=== PATIENT | female | born 1965 | race Caucasian/White ===

== ENCOUNTER 2023-06-26 07:23 | Inpatient (IN) | payer MEDICARE, MEDICAID ==
[2023-06-21 15:44] LABS: BASOPHILS % (AUTO) 0.3 % (0-1); EOSINOPHILS # (AUTO) 0.2 X10'3 (0-0.9); EOSINOPHILS % (AUTO) 1.8 % (0-6); LYMPHOCYTES # (AUTO) 3.2 X10'3 (1.1-4.8); LYMPHOCYTES % (AUTO) 36.3 % (21-51); MEAN CORPUSCULAR HEMOGLOBIN 30.3 PG (27.0-31.0); MEAN CORPUSCULAR HGB CONC 33.4 g/dL (33.0-36.5); MEAN CORPUSCULAR VOLUME 90.6 FL (78-98); MEAN PLATELET VOLUME 8.7 FL (7.4-10.4); MONOCYTES # (AUTO) 0.4 X10'3 (0-0.9); MONOCYTES % (AUTO) 4.2 % (2-12); NEUTROPHILS # (AUTO) 5.1 X10'3 (1.8-7.7); NEUTROPHILS % (AUTO) 57.4 % (42-75); PRE OP HEMATOCRIT 44.5 % (35.0-45.0); PRE OP HEMOGLOBIN 14.9 g/dL (12.0-16.0); PRE OP PLATELET COUNT 275 X10'3 (140-440); PRE OP WHITE BLOOD COUNT 8.9 10'3 (4.8-10.8); RED BLOOD COUNT 4.91 X10'6 (4.20-5.60); RED CELL DISTRIBUTION WIDTH 14.1 % (11.5-14.5)
[2023-06-21 15:48] LABS: BILIRUBIN,URINE NEGATIVE (Neg); CLARITY,URINE CLEAR (Clear); COLOR,URINE YELLOW (Yellow); GLUCOSE, URINE 100 mg/dl (Neg); KETONES,URINE NEGATIVE (Neg); LEUKOCYTE ESTERASE ,URINE NEGATIVE (Neg); NITRITES, URINE NEGATIVE (Neg); OCCULT BLOOD,URINE NEGATIVE (Neg); PROTEIN,URINE NEGATIVE (Neg); UROBILINOGEN,URINE 0.2 E.U/dL (0.2-1.0)
[2023-06-21 15:54] LABS: ALBUMIN 3.8 G/DL (3.4-5.0); ALBUMIN/GLOBULIN RATIO 0.9 (1.1-1.5); ALKALINE PHOSPHATASE 119 IU/L (46-116); BLOOD UREA NITROGEN 12 MG/DL (7-18); BUN/CREATININE RATIO 12.8 (10.0-20.0); CALCIUM 9.8 MG/DL (8.5-10.1); CHLORIDE 104 MMOL/L (99-107); CREATININE 0.94 MG/DL (0.40-0.90); PRE OP ALT 15 U/L (30-65); PRE OP ANION GAP 11 (8-16); PRE OP AST 14 U/L (10-37); PRE OP BILIRUB, TOTAL 0.2 MG/DL (0.0-1.0); PRE OP GLUCOSE 183 MG/DL (70-104); PRE OP POTASSIUM 3.7 MMOL/L (3.4-5.1); PRE OP SODIUM 137 MMOL/L (135-145); TOTAL CARBON DIOXIDE 22.1 MMOL/L (24-32); TOTAL PROTEIN 7.9 G/DL (6.4-8.2); eGFR 61 ML/MIN
[2023-06-21 15:58] LABS: UA COLLECTION TYPE CLN CATCH MIDSTREAM
[2023-06-21 16:20] LABS: HEMOGLOBIN A1C 7.4 % (4.5-6.2)
[~2023-06-26] VITALS: Ht 167.6 cm; Wt 68.3 kg
[2023-06-26] VITALS (26 sets, daily range): BP systolic 91–171; BP diastolic 43–111; PULSE 68–84; RESP 11–22; TEMP 97.6–98.4; O2SAT 94–100
[~2023-06-26 07:23] MED LIST: BUSP30TA3 PO; CLON0.1T2 PO; DOCUMENT DATE & TIME OF BETA-BLOCKER PO ONE; DULA1.5P SQ; GABA300C PO; IBUP-1985 PO; LAMO100T PO; MECL-302 PO; METO25TA6 PO; MIRT-88 PO; OMEP20CA16 PO; ZOLP5TAB8 PO; cefazolin 2gm/D5W 100mL 100 ML IV ONE; famotidine 20mg tablet PO ONE; ringers solution, lacted 1,000 ML IV SCH; tranexamic acid 650mg tablet PO ONE; vancomycin/NS 1 GM in NS 250 ML IV ONE
--- NOTE | 2023-06-26 07:30 | NUR ---
PT WAS ABLE TO COMPLETE ALL SHOWERS AND OINTMENT ORDERED, REVIEWED JOINT EDUCATION-ALL QUESTIONS ANSWERED, CSM PRESENT TO BLE
[2023-06-26] MEDS ORDERED: MIDAZolam 1mg/ml 10ml vial ONE (10:27)
[2023-06-26] MEDS ORDERED: fentaNYL/PF 50MCG/1 ML 2ML syringe ONE (10:27)
[2023-06-26] MEDS ORDERED: oxyCODONE IR 5mg (immed. release) tablet PO PRN ×2 (10:45)
[2023-06-26] MEDS ORDERED: magnesium hydroxide 30ml (MOM) UD suspension PO PRN (10:45)
[2023-06-26] MEDS ORDERED: zolpidem 5mg tablet PO PRN (10:45)
[2023-06-26] MEDS ORDERED: HYDROmorphone inj. 0.5 MG/0.5 ML DISP.SYRIN IV PRN (10:45)
[2023-06-26] MEDS ORDERED: bisacodyl 10mg suppository rectal RC PRN (10:45)
[2023-06-26] MEDS ORDERED: ondansetron/PF 4mg/2ml inj IV PRN ×2 (10:45→11:10)
[2023-06-26] MEDS ORDERED: acetaminophen 325mg tablet PO PRN (10:45)
[2023-06-26] MEDS ORDERED: HYDROcodone/acetaminophen 10/325mg tab PO PRN (10:45)
[2023-06-26] MEDS ORDERED: meclizine 12.5mg tablet PO PRN (10:45)
[2023-06-26] MEDS ORDERED: naloxone 0.4 mg/ml inj IV PRN (10:45)
[2023-06-26] MEDS ORDERED: ROPIVAcaine 0.5% (5mg/ml) 30ml vial ONE ×2 (11:02→11:23)
[2023-06-26] MEDS ORDERED: ringers solution, lacted 1,000 ML IV SCH (11:10)
[2023-06-26] MEDS ORDERED: fentaNYL/PF 50MCG/1 ML 2ML syringe IV PRN ×2 (11:10)
[2023-06-26] MEDS ORDERED: labetalol 20mg/4ml (5mg/ml) syringe IV PRN (11:10)
[2023-06-26] MEDS ORDERED: morphine 4 MG/ML inj SYRINge IV PRN (11:10)
[2023-06-26] MEDS ORDERED: morphine 2 MG/ML inj. syringe IV PRN (11:10)
[2023-06-26] MEDS ORDERED: hydrALAZINE 20mg/ml inj. IV PRN (11:10)
--- NOTE | 2023-06-26 12:15 | NUR ---
Received from OR via HOSPITAL BED, accompanied by Anesthesiologist DR GUNTER and report given by Anesthesiologist. PT IS GROGGY BUT RESPONDS TO VERBAL STIMULI. PT PLACED ON BEDSIDE MONITOR, VSS. PT IN SR WITH RATE IN 70'S. PT RECEIVING 8L O2 TO MASK AND TOLERATING WELL WITH O2 SAT > 95%. WILL TITRATE DOWN PT TOLERATES. PT HAS 22G PIV TO RT WRIST WITH LR INFUSING ORDERED. PT HAS ISLAND DRSG TO RT KNEE THAT IS CDI, KNEE WRAP AND ICE PACK IN PLACE. PT IS UNABLE TO MOVE BLE, FEELING AT L1. PT HAS BILAT, STRONG PALPABLE DORSALIS PEDIS PULSES PRESENT. PT DENIES PAIN AT THIS TIME. WILL CONTINUE TO ASSESS
[2023-06-26] MEDS ORDERED: non-formulary drug (Ibuprofen 1 TAB) PO SCH (13:00)
[2023-06-26] MEDS: gabapentin 300mg capsule PO SCH ×2 (13:27→20:55)
[2023-06-26] MEDS: acetaminophen 325mg tablet PO SCH ×2 (14:00→20:00)
--- NOTE | 2023-06-26 14:30 | NUR ---
PATIENT HAS MET ALL CRITERIA FOR TRANSFER TO THE ORTHO FLOOR. VSS. DRESSINGS INTACT. BED LOW, CALL LIGHT PRESENT AND 2 RAILS UP. NURSE PRESENT TO ACCEPT CARE OF PATIENT AND REPORT HAS BEEN CALLED TO KARRI PETTIT. ALL QUESTIONS ANSWERED TO ACCEPTING RN.
--- NOTE | 2023-06-26 17:30 | NUR ---
I have reviewed and agree with interventions, assessments, and documentation by Yaneli Bacon LVN.
[2023-06-26] MEDS: ceFAZolin/D5W- 1GM premix 50 ML IV SCH (17:54)
[2023-06-26] MEDS: HYDROcodone/acetaminophen 10/325mg tab PO PRN ×2 (18:28→23:38)
--- NOTE | 2023-06-26 18:43 | NUR ---
Patient in room ORTHO 4024. I have received report from HODAN VIDALES and had the opportunity to ask questions and assume patient care.
[2023-06-26] MEDS: potassium cl 20mEq in 1/2 NS 1,000 ML IV SCH ×2 (18:45→21:14)
[2023-06-26] MEDS ORDERED: vancomycin/NS 1 GM ADD-VANTAGE 250 ML IV SCH (20:00)
[2023-06-26] MEDS: HYDROmorphone 1 mg/ml syringe IV PRN (20:34)
[2023-06-26] MEDS: metoprolol tartrate 25mg tablet PO SCH (20:56)
[2023-06-26] MEDS: busPIRone 15mg tablet PO SCH (20:57)
[2023-06-26] MEDS ORDERED: sennosides 8.6mg tablet PO SCH (21:00)
[2023-06-26] MEDS ORDERED: cloNIDine 0.1 mg tablet PO SCH (21:00)
[2023-06-26] MEDS ORDERED: pantoprazole 40mg Tablet.DR PO SCH (21:00)
[2023-06-27] MEDS: HYDROmorphone 1 mg/ml syringe IV PRN ×2 (01:33→05:57)
[2023-06-27] MEDS: acetaminophen 325mg tablet PO SCH ×3 (02:00→13:32)
[2023-06-27] MEDS: ceFAZolin/D5W- 1GM premix 50 ML IV SCH (02:07)
[2023-06-27] MEDS: potassium cl 20mEq in 1/2 NS 1,000 ML IV SCH ×2 (02:45→10:10)
[2023-06-27 07:29] LABS: BASOPHILS # (AUTO) 0.1 X10'3 (0-0.2); BASOPHILS % (AUTO) 0.8 % (0-1); EOSINOPHILS # (AUTO) 0.2 X10'3 (0-0.9); EOSINOPHILS % (AUTO) 2.4 % (0-6); HEMATOCRIT 35.3 % (35.0-45.0); HEMOGLOBIN 11.9 g/dl (12.0-16.0); LYMPHOCYTES # (AUTO) 2.4 X10'3 (1.1-4.8); LYMPHOCYTES % (AUTO) 34.9 % (21-51); MEAN CORPUSCULAR HEMOGLOBIN 30.3 PG (27.0-31.0); MEAN CORPUSCULAR HGB CONC 33.7 g/dL (33.0-36.5); MEAN CORPUSCULAR VOLUME 89.9 FL (78-98); MEAN PLATELET VOLUME 8.3 FL (7.4-10.4); MONOCYTES # (AUTO) 0.5 X10'3 (0-0.9); MONOCYTES % (AUTO) 7.5 % (2-12); NEUTROPHILS # (AUTO) 3.8 X10'3 (1.8-7.7); NEUTROPHILS % (AUTO) 54.4 % (42-75); PLATELET COUNT 237 X10'3 (140-440); RED BLOOD COUNT 3.93 X10'6 (4.20-5.60); RED CELL DISTRIBUTION WIDTH 13.9 % (11.5-14.5)
[2023-06-27] MEDS: busPIRone 15mg tablet PO SCH (07:35)
[2023-06-27] MEDS: gabapentin 300mg capsule PO SCH ×2 (07:36→12:55)
[2023-06-27] MEDS: metoprolol tartrate 25mg tablet PO SCH (07:39)
[2023-06-27 07:54] LABS: ANION GAP 5 (8-16); CHLORIDE 105 MMOL/L (99-107); POTASSIUM 4.1 MMOL/L (3.5-5.1); SODIUM 135 MMOL/L (135-145); TOTAL CARBON DIOXIDE 24.8 MMOL/L (24-32)
[2023-06-27 08:00] VITALS: BP 139/67; PULSE 83; RESP 16; TEMP 98.6; O2SAT 98
[2023-06-27] MEDS ORDERED: lamoTRIgine 100mg tablet PO SCH (08:00)
[2023-06-27] MEDS ORDERED: Dulaglutide (Trulicity) 1.5 MG/0.5ML SQ SCH (08:00)
[2023-06-27] MEDS ORDERED: aspirin 325mg tablet PO SCH (08:30)
[2023-06-27] MEDS ORDERED: cyclobenzaprine 10mg tablet PO PRN (08:40)
[2023-06-27] MEDS ORDERED: oxyCODONE IR 5mg (immed. release) tablet PO PRN (08:40)
[2023-06-27] MEDS: oxyCODONE IR 5mg (immed. release) tablet PO PRN ×2 (09:04→13:33)
[2023-06-27 10:00] VITALS: BP 139/63; PULSE 83; RESP 20; TEMP 99.3; O2SAT 98
[2023-06-27 10:46] VITALS: RESP 16; O2SAT 98
[2023-06-27] MEDS ORDERED: ketorolac tromethamine 15mg/ml inj. IV ONE (11:00)
[2023-06-27 13:33] VITALS: RESP 16
[2023-06-27] MEDS ORDERED: ONDA8TAB13 PO (13:56)
--- NOTE | 2023-06-27 14:45 | NUR ---
Joint and diabetes consults: Pt s/p knee surgery per EMR. Pt presents with A1c of 7.4% this admit per EMR. RD attempted to see pt at bedside however pt was busy with another discipline during time of visit. Due to short staffing placed high protein nutrition and diabetes nutrition education handouts in pt's chart with RD contact information. Will remain available for any nutrition questions or concerns. Addendum: 06/27/23 at [address] Amended: Links added.
[2023-06-28] MEDS ORDERED: acetaminophen 325mg tablet PO PRN (10:45)
== END 2023-06-27 15:15 | disposition home or self-care (01) | DRG 470 ==
LOC: PAS 07:23 → ORTHO 4S 10:46
PROVIDERS: ADMIT Orthopaedic Surgery; ATTEND Orthopaedic Surgery
PROC: 0SRC0J9 Replacement of Right Knee Joint with Synthetic Substitute, Cemented, Open Approach (ICD-10-PCS; 2023-06-26)
PROC: 3E0T3BZ Introduction of Anesthetic Agent into Peripheral Nerves and Plexi, Percutaneous Approach (ICD-10-PCS; 2023-06-26)
PROC: 3E0T33Z Introduction of Anti-inflammatory into Peripheral Nerves and Plexi, Percutaneous Approach (ICD-10-PCS; 2023-06-26)
PROC: 8E0Y0CZ Robotic Assisted Procedure of Lower Extremity, Open Approach (ICD-10-PCS; principal; 2023-06-26 10:25)
DX: M17.11 Unilateral primary osteoarthritis, right knee (principal)
CPT/HCPCS: 36415; 80051; 80053; 81003; 82948; 83036; 85025; 87081; 97110; 97161; 97530; A4215; A7000; C1713; C1758; C1776; G0378; J0690; J1170; J1885; J2250; J2795; J3010; J3370; J3480; J3490; J7120

== ENCOUNTER 2023-10-18 15:23 | Emergency (ER) | payer MEDICARE, MEDICAID ==
[~2023-10-18] VITALS: Ht 167.6 cm; Wt 60.9 kg
[~2023-10-18 15:23] MED LIST changes: -DOCUMENT DATE & TIME OF BETA-BLOCKER PO ONE; +ONDA8TAB13 PO; -cefazolin 2gm/D5W 100mL 100 ML IV ONE; -famotidine 20mg tablet PO ONE; -ringers solution, lacted 1,000 ML IV SCH; -tranexamic acid 650mg tablet PO ONE; -vancomycin/NS 1 GM in NS 250 ML IV ONE
[2023-10-18 15:51] LABS: BASOPHILS # (AUTO) 0.1 X10'3 (0-0.2); BASOPHILS % (AUTO) 0.9 % (0-1); EOSINOPHILS # (AUTO) 0.1 X10'3 (0-0.9); EOSINOPHILS % (AUTO) 0.8 % (0-6); HEMATOCRIT 45.3 % (35.0-45.0); HEMOGLOBIN 15.2 g/dl (12.0-16.0); LYMPHOCYTES # (AUTO) 3.3 X10'3 (1.1-4.8); LYMPHOCYTES % (AUTO) 35.6 % (21-51); MEAN CORPUSCULAR HEMOGLOBIN 29.9 PG (27.0-31.0); MEAN CORPUSCULAR HGB CONC 33.5 g/dL (33.0-36.5); MEAN CORPUSCULAR VOLUME 89.3 FL (78-98); MEAN PLATELET VOLUME 8.4 FL (7.4-10.4); MONOCYTES # (AUTO) 0.4 X10'3 (0-0.9); MONOCYTES % (AUTO) 4.1 % (2-12); NEUTROPHILS # (AUTO) 5.5 X10'3 (1.8-7.7); NEUTROPHILS % (AUTO) 58.6 % (42-75); PLATELET COUNT 302 X10'3 (140-440); RED BLOOD COUNT 5.07 X10'6 (4.20-5.60); RED CELL DISTRIBUTION WIDTH 13.6 % (11.5-14.5); WHITE BLOOD COUNT 9.4 X10'3 (4.5-11.0)
[2023-10-18 16:15] LABS: ALANINE AMINOTRANSFERASE 13 U/L (12-78); ALBUMIN 4.2 G/DL (3.4-5.0); ALBUMIN/GLOBULIN RATIO 1.1 (1.1-1.5); ALKALINE PHOSPHATASE 91 IU/L (46-116); ANION GAP 14 (8-16); ASPARTATE AMINO TRANSFERASE 6 U/L (10-37); BILIRUBIN,TOTAL 0.4 MG/DL (0.1-1.0); BLOOD UREA NITROGEN 17 MG/DL (7-18); BUN/CREATININE RATIO 15.9 (10.0-20.0); CALCIUM 9.9 MG/DL (8.5-10.1); CHLORIDE 103 MMOL/L (99-107); CREATININE 1.07 MG/DL (0.40-0.90); GLUCOSE 124 MG/DL (70-104); POTASSIUM 3.8 MMOL/L (3.5-5.1); SODIUM 139 MMOL/L (135-145); TOTAL CARBON DIOXIDE 22.3 MMOL/L (24-32); eCRCL 54 ML/MIN; eGFR 53 ML/MIN
[2023-10-18 16:22] LABS: PRO BRAIN NATRIURETIC PEPTIDE 51 PG/ML (0-125)
[2023-10-18] MEDS ORDERED: ketorolac trometh inj. 60 MG/2 ML VIAL IM ONE (21:15)
[2023-10-18] MEDS ORDERED: ONDA4TAB12 PO (21:16)
[2023-10-18] MEDS ORDERED: HYDR-3973 PO (21:16)
[2023-10-18 21:37] VITALS: BP 164/100; PULSE 90; RESP 16; TEMP 98.1; O2SAT 99
== END 2023-10-18 21:39 | disposition home or self-care (01) ==
LOC: ER 15:24
DX: R07.89 Other chest pain (principal); G89.29 Other chronic pain; R68.83 Chills (without fever); Z85.3 Personal history of malignant neoplasm of breast; Z88.1 Allergy status to other antibiotic agents; Z88.8 Allergy status to other drugs, medicaments and biological substances; Z79.899 Other long term (current) drug therapy; Z51.11 Encounter for antineoplastic chemotherapy
CPT/HCPCS: 36415; 71045; 80053; 83880; 84484; 85025; 93005; 96372; 99285; J1885